=== PATIENT | female | born 1950 | race Asian ===

== ENCOUNTER 2018-01-11 22:39 | Emergency (ER) | payer OTHER ==
[~2018-01-11] VITALS: Ht 152.4 cm; Wt 101.2 kg
[2018-01-11 23:11] LABS: HEMATOCRIT 35.5 % (36.0-46.0); HEMOGLOBIN 11.3 G/DL (11.9-15.5); MCH 29.5 PG (29.0-34.0); MCHC 31.8 G/DL (30.0-36.0); MCV 92.7 FL (83-99); PLATELET COUNT 267 K/uL (156-360); RBC DIS.WIDTH-CV 15.9 % (11.8-14.6); RBC DIS.WIDTH-SD 53.4 % (39-53); RED BLOOD COUNT 3.83 M/uL (3.80-5.20); WHITE BLOOD COUNT 8.6 K/uL (4.1-10.2)
[2018-01-11 23:22] LABS: CHLORIDE 109 mEq/L (99-109); POTASSIUM 5.5 mEq/L (3.7-5.4); SODIUM 140 mEq/L (136-147)
[2018-01-11 23:24] LABS: GLUCOSE 248 mg/dL (70-99)
[2018-01-11 23:28] LABS: CREATININE 1.6 mg/dL (0.6-1.3)
[2018-01-11 23:29] LABS: UREA NITROGEN (BUN) 36 mg/dL (9-23)
[2018-01-11 23:33] LABS: GFR ESTIMATE (CALCULATED) 34 mL/min/
[2018-01-12] MEDS ORDERED: ULTRAM50 MG PO (02:20)
[2018-01-12 02:21] VITALS: BP 162/86
== END 2018-01-12 02:29 | disposition home or self-care (01) ==
LOC: EXP 22:39 → EME 22:39 → EXP 01-12 02:29
DX: M54.5 Low back pain (principal); G89.29 Other chronic pain; E11.9 Type 2 diabetes mellitus without complications; I10 Essential (primary) hypertension; E78.5 Hyperlipidemia, unspecified
CPT/HCPCS: 71046; 80048; 85027; 99281; 99284; J3010